=== PATIENT | female | born 1950 | race Caucasian/White ===

== ENCOUNTER → 2018-02-22 | Outpatient (CLI) | payer BC ==
[~2018-02-22] MED LIST: CALCIUM 500500 M1 PO; CARDI-OMEGA1000 MG PO; DESYREL 50MG50 MG PO; IRON325 M1 PO; LASIX 20MG TABL20 MG PO; LORTAB 5/500 501 TAB PO; LUTEIN6 MG PO; NORCO 325 MG-51 TAB PO; RED WINE EXTRA PO; VIT B 12; [UNRECOGNIZED DRUG - OTHER] PO
== END ==
LOC: MC.RAD 15:00
DX: Z12.31 Encounter for screening mammogram for malignant neoplasm of breast (principal)

== ENCOUNTER 2019-10-03 11:00 | Outpatient (RCR) | payer BC | END 2019-10-17 12:33 | disposition home or self-care (01) | LOC: WSPT 11:00 | DX: M54.5 Low back pain (principal) ==